=== PATIENT | male | born 1955 | race Two or more races ===

== ENCOUNTER 2018-01-01 12:05 | Emergency (ER) | payer OTHER ==
[~2018-01-01] VITALS: Ht 175.3 cm; Wt 72.1 kg
[2018-01-01] MEDS ORDERED: NORVASC2.5 M1 (12:42)
[2018-01-01] MEDS ORDERED: AMARYL PO (12:42)
[2018-01-01] MEDS ORDERED: COZAAR50 MG (12:42)
[2018-01-01] MEDS ORDERED: CARDURA1 MG (12:42)
[2018-01-01] MEDS ORDERED: METFORMIN HCL500 MG (12:42)
[2018-01-01] MEDS ORDERED: LIPITOR20 MG (12:42)
[2018-01-01] MEDS ORDERED: LANTUS SOL100 UNIT/1 SUBCUTANEO (12:43)
== END 2018-01-01 15:43 | disposition home or self-care (01) ==
LOC: ER 12:05
DX: N20.0 Calculus of kidney (principal); R10.32 Left lower quadrant pain

== ENCOUNTER 2018-01-09 11:02 | Outpatient (CLI) | payer OTHER | END 2018-01-09 11:07 | disposition home or self-care (01) | LOC: RAD 11:02 | DX: E71.19 Other disorders of branched-chain amino-acid metabolism (principal); N20.0 Calculus of kidney ==